=== PATIENT | male | born 1995 | race African-American/Black ===

== ENCOUNTER 2021-05-01 12:54 | Inpatient (IN) | payer OTHER ==
[~2021-05-01] VITALS: Ht 190.5 cm; Wt 117.8 kg
[2021-05-01] MEDS ORDERED: ZOLO50TA PO (13:01)
[2021-05-01 14:13] LABS: HEMATOCRIT 45.7 % (36.0-47.0); HEMOGLOBIN 15.5 g/dl (12.0-15.5); MEAN CORPUSCULAR HEMOGLOBIN 29.9 pg (27.0-33.0); MEAN CORPUSCULAR HGB CONC 33.9 g/dl (32.0-36.5); MEAN CORPUSCULAR VOLUME 88.1 fl (80.0-96.0); PLATELET COUNT, AUTOMATED 253 10^3/uL (150-450); RED BLOOD COUNT 5.19 10^6/uL (4.00-5.40); WHITE BLOOD COUNT 8.5 10^3/uL (4.0-10.0)
[2021-05-01 14:36] LABS: AMPHETAMINES LEVEL URINE NEGATIVE (NEGATIVE); BARBITURATES URINE NEGATIVE (NEGATIVE); BENZODIAZEPINES URINE NEGATIVE (NEGATIVE); CANNABINOIDS URINE POSITIVE (NEGATIVE); COCAINE METABOLITE URINE NEGATIVE (NEGATIVE); METHADONE URINE NEGATIVE (NEGATIVE); OPIATES URINE NEGATIVE (NEGATIVE); PHENCYCLIDINE URINE NEGATIVE (NEGATIVE)
[2021-05-01 14:49] LABS: RSV AMPLIFICATION NEGATIVE (NEGATIVE)
[2021-05-01 14:56] LABS: ACETAMINOPHEN LEVEL < 2.0 UG/ML (10.0-30.0); ALBUMIN 3.8 GM/DL (3.2-5.2); ALT/SGPT 25 U/L (12-78); BILIRUBIN,DIRECT 0.1 MG/DL (0.0-0.2); BILIRUBIN,TOTAL 0.6 MG/DL (0.2-1.0); BLOOD UREA NITROGEN 7 MG/DL (7-18); CALCIUM LEVEL 8.7 MG/DL (8.5-10.1); CARBON DIOXIDE LEVEL 28 MEQ/L (21-32); CHLORIDE LEVEL 107 MEQ/L (98-107); CREATININE FOR GFR 1.09 MG/DL (0.55-1.30); ETHYL ALCOHOL (ETHANOL) < 0.003 % (0.000-0.010); GLOMERULAR FILTRATION RATE > 60.0 (>60); GLUCOSE, FASTING 95 MG/DL (70-100); SALICYLATE LEVEL < 1.7 MG/DL (5.0-30.0); SODIUM LEVEL 139 MEQ/L (136-145); THYROID STIMULATING HORMONE 0.494 uIU/ML (0.358-3.740); TOTAL PROTEIN 7.6 GM/DL (6.4-8.2)
[2021-05-01 15:04] LABS: HCG, SERUM QUALITATIVE NEGATIVE (NEGATIVE)
[2021-05-01] MEDS ORDERED: HOME MED LIST COMPLETE! XX SCH (17:20)
[2021-05-02] MEDS ORDERED: MAALOX 30 ML SUSP *UDC PO PRN (15:20)
[2021-05-02] MEDS ORDERED: IBUPROFEN 400MG TAB PO PRN (15:20)
[2021-05-02] MEDS ORDERED: traZODone 50 MG TAB PO PRN (15:20)
[2021-05-02] MEDS ORDERED: MOM 30ML SUSPENSION UDC PO PRN (15:20)
[2021-05-02 17:00] VITALS: BP 135/89
[2021-05-03 06:27] VITALS: BP 121/82
[2021-05-03] MEDS: NICOTINE 21MG/24HR 1 EA TRANSDERMAL TD PRN (08:52)
[2021-05-03] MEDS ORDERED: FLUBLOK(EGG FREE)(QUAD)INFLUENZA VACC 0.5ML SYRINGE 18YRS & OLDER IM ONE (11:55)
[2021-05-03] MEDS ORDERED: NICOTINE POLACRILEX 2 MG GUM PO PRN (12:30)
[2021-05-03] MEDS ORDERED: INFLUENZA QUADRIVALENT PF VACCINE 0.5ML SYRINGE IM ONE (13:00)
[2021-05-03 13:52] LABS: HEPATITIS B CORE ANTIBODY IGM NEGATIVE (NEGATIVE); HEPATITIS B SURFACE ANTIGEN NEGATIVE (NEGATIVE); HEPATITIS C VIRUS ABY INDEX 0.2 INDEX (<0.8)
[2021-05-03 16:25] VITALS: BP 137/77
[2021-05-04 06:15] VITALS: BP 131/67
[2021-05-04] MEDS ORDERED: SERTRALINE HCL 50 MG TAB PO SCH (09:00)
[2021-05-04 11:05] LABS: CHOLESTEROL RISK RATIO 5.054 (<5)
[2021-05-04 11:12] LABS: HEMOGLOBIN A1c 5.3 %
[2021-05-04 16:58] VITALS: BP 129/66
[2021-05-04] MEDS: traZODone 100 MG TAB PO PRN (22:46)
[2021-05-05 06:51] VITALS: BP 144/63
[2021-05-05] MEDS: SERTRALINE HCL 25 MG TABLET PO SCH (08:36)
[2021-05-05] MEDS: NICOTINE 21MG/24HR 1 EA TRANSDERMAL TD PRN (16:08)
[2021-05-05 19:05] VITALS: BP 138/82
[2021-05-05] MEDS: traZODone 100 MG TAB PO PRN (23:07)
[2021-05-06 07:03] VITALS: BP 123/68
[2021-05-06] MEDS: SERTRALINE HCL 25 MG TABLET PO SCH (09:12)
[2021-05-06 16:38] VITALS: BP 131/78
[2021-05-06] MEDS: PRAZOSIN 1 MG CAP PO SCH (21:43)
[2021-05-06] MEDS: traZODone 100 MG TAB PO PRN (22:43)
[2021-05-07 06:34] VITALS: BP 143/64
[2021-05-07] MEDS: SERTRALINE HCL 25 MG TABLET PO SCH (08:20)
[2021-05-07] MEDS: NICOTINE 21MG/24HR 1 EA TRANSDERMAL TD PRN (08:21)
[2021-05-07 16:20] VITALS: BP_SYST 122; BP_SYST 140; BP_DIAS 77; BP_DIAS 83
[2021-05-07] MEDS: PRAZOSIN 1 MG CAP PO SCH (20:33)
[2021-05-07] MEDS: traZODone 100 MG TAB PO PRN (23:00)
[2021-05-08 06:41] VITALS: BP 135/70
[2021-05-08] MEDS: SERTRALINE HCL 25 MG TABLET PO SCH (08:13)
[2021-05-08 18:13] VITALS: BP 135/81
[2021-05-08 20:14] VITALS: BP 138/80
[2021-05-08] MEDS: PRAZOSIN 1 MG CAP PO SCH (20:14)
[2021-05-08] MEDS: traZODone 100 MG TAB PO PRN (22:38)
[2021-05-09 07:00] VITALS: BP 114/69
[2021-05-09] MEDS: SERTRALINE HCL 25 MG TABLET PO SCH (09:41)
[2021-05-09] MEDS: NICOTINE 21MG/24HR 1 EA TRANSDERMAL TD PRN (09:41)
[2021-05-09] MEDS ORDERED: MINI1CAP PO (11:40)
[2021-05-09] MEDS ORDERED: SERT25TA21 PO (11:40)
[2021-05-09] MEDS ORDERED: NICO21PAT TD (11:40)
[2021-05-09] MEDS ORDERED: TRAZ-257 PO (11:40)
== END 2021-05-09 13:15 | disposition home or self-care (01) | DRG 751 ==
LOC: M ED 12:54 → EDSEX 12:54 → M ED INP 05-02 15:18 → M PSY 05-02 16:35
PROVIDERS: ADMIT Student in an Organized Health Care Education/Training Program; ATTEND Student in an Organized Health Care Education/Training Program
DX: F33.1 Major depressive disorder, recurrent, moderate (principal); R45.850 Homicidal ideations; R45.851 Suicidal ideations; F10.10 Alcohol abuse, uncomplicated; F17.200 Nicotine dependence, unspecified, uncomplicated; F12.959 Cannabis use, unspecified with psychotic disorder, unspecified; Z63.8 Other specified problems related to primary support group; E66.9 Obesity, unspecified; M22.41 Chondromalacia patellae, right knee; F60.4 Histrionic personality disorder

== ENCOUNTER → 2021-08-04 | Outpatient (CLI) | payer OTHER ==
[~2021-08-04] MED LIST: MINI1CAP PO; NICO21PAT TD; SERT25TA21 PO; TRAZ-257 PO; ZOLO50TA PO
== END ==
LOC: M LAB 16:43
PROVIDERS: ATTEND Physician Assistant
DX: J03.90 Acute tonsillitis, unspecified (principal)

== ENCOUNTER 2022-05-12 01:42 | Emergency (ER) | payer OTHER ==
[~2022-05-12] VITALS: Ht 180.3 cm; Wt 82.0 kg
[2022-05-12] MEDS ORDERED: NS 1,000 ML IV ONE (01:50)
[2022-05-12 02:05] LABS: BASO % 0.3 % (0.0-1.0); EOS # 0.1 10^3/uL (0.0-0.5); EOS % 1.4 % (0.0-3.0); HEMATOCRIT 39.6 % (42.0-52.0); HEMOGLOBIN 13.6 g/dl (13.5-17.5); LYMPH # 3.8 10^3/uL (1.5-5.0); LYMPH % 39.7 % (24.0-44.0); MEAN CORPUSCULAR HGB CONC 34.3 g/dl (32.0-36.5); MEAN CORPUSCULAR VOLUME 90.2 fl (80.0-96.0); MONO # 0.9 10^3/uL (0.0-0.8); MONO % 9.6 % (2.0-8.0); NEUTROPHILS # 4.6 10^3/uL (1.5-8.5); NEUTROPHILS % 48.8 % (36.0-66.0); PLATELET COUNT, AUTOMATED 274 10^3/uL (150-450); RED BLOOD COUNT 4.39 10^6/uL (4.30-6.10); WHITE BLOOD COUNT 9.5 10^3/uL (4.0-10.0)
[2022-05-12 02:26] LABS: BLOOD UREA NITROGEN 16 MG/DL (9-23); CALCIUM LEVEL 8.7 MG/DL (8.5-10.1); CARBON DIOXIDE LEVEL 26 MMOL/L (20-31); CHLORIDE LEVEL 104 MMOL/L (98-107); CREATININE FOR GFR 1.01 MG/DL (0.70-1.30); GLOMERULAR FILTRATION RATE > 60.0 (>60); GLUCOSE, FASTING 142 MG/DL (60-100); MAGNESIUM LEVEL 1.9 MG/DL (1.8-2.4); POTASSIUM SERUM 3.6 MMOL/L (3.5-5.1); SODIUM LEVEL 139 MMOL/L (136-145)
[2022-05-12 03:00] VITALS: BP 138/63
== END 2022-05-12 04:23 | disposition short-term general hospital (02) ==
LOC: M ED 01:42 → EDBD 01:42 → M ED 04:23
DX: T50.905A Adverse effect of unspecified drugs, medicaments and biological substances, initial encounter (principal); R00.2 Palpitations; R00.0 Tachycardia, unspecified; F32.A Depression, unspecified; F43.10 Post-traumatic stress disorder, unspecified; F12.10 Cannabis abuse, uncomplicated; Z79.899 Other long term (current) drug therapy

== ENCOUNTER → 2024-04-11 | Outpatient (CLI) | payer OTHER ==
[2024-04-11 17:29] LABS: BASO # 0.1 10^3/uL (0.0-0.2); BASO % 0.7 % (0.0-1.0); EOS # 0.2 10^3/uL (0.0-0.5); EOS % 2.3 % (0.0-3.0); HEMATOCRIT 46.3 % (42.0-52.0); HEMOGLOBIN 16.1 g/dl (13.5-17.5); LYMPH # 2.1 10^3/uL (1.5-5.0); LYMPH % 29.9 % (24.0-44.0); MEAN CORPUSCULAR HEMOGLOBIN 30.8 pg (27.0-33.0); MEAN CORPUSCULAR HGB CONC 34.8 g/dl (32.0-36.5); MEAN CORPUSCULAR VOLUME 88.7 fl (80.0-96.0); MONO # 0.8 10^3/uL (0.0-0.8); MONO % 11.1 % (2.0-8.0); NEUTROPHILS # 3.9 10^3/uL (1.5-8.5); NEUTROPHILS % 55.4 % (36.0-66.0); PLATELET COUNT, AUTOMATED 282 10^3/uL (150-450); RED BLOOD COUNT 5.22 10^6/uL (4.30-6.10); WHITE BLOOD COUNT 7.1 10^3/uL (4.0-10.0)
[2024-04-11 17:57] LABS: THYROID STIMULATING HORMONE 0.921 uIU/ML (0.55-4.78)
[2024-04-11 17:58] LABS: FREE T4 1.27 NG/DL (0.89-1.76)
[2024-04-11 17:59] LABS: ALBUMIN 4.2 G/DL (3.2-5.2); ALKALINE PHOSPHATASE 77 U/L (40-129); ALT/SGPT 27 U/L (7.0-40); AST/SGOT 26 U/L (<34); BILIRUBIN,TOTAL 0.7 MG/DL (0.3-1.2); BLOOD UREA NITROGEN 15 MG/DL (9-23); CALCIUM LEVEL 9.8 MG/DL (8.5-10.1); CARBON DIOXIDE LEVEL 25 MMOL/L (20-31); CHLORIDE LEVEL 103 MMOL/L (98-107); CHOLESTEROL LEVEL 214 MG/DL (<200); CHOLESTEROL RISK RATIO 4.43 (<5); CREATININE FOR GFR 0.93 MG/DL (0.70-1.30); GLOMERULAR FILTRATION RATE > 60.0 (>60); GLUCOSE, FASTING 69 MG/DL (60-100); HDL CHOLESTEROL 48.3 MG/DL (>40); LDL CHOLESTEROL 116.1 MG/DL (<100); NON-HDL-C 165.7 MG/DL; POTASSIUM SERUM 4.1 MMOL/L (3.5-5.1); SODIUM LEVEL 138 MMOL/L (136-145); TOTAL PROTEIN 8.2 G/DL (5.7-8.2); TRIGLYCERIDES LEVEL 248 MG/DL (<150)
== END ==
LOC: M PLALAB 15:52
PROVIDERS: ATTEND Nurse Practitioner Family
DX: R53.83 Other fatigue (principal); M25.561 Pain in right knee; R73.01 Impaired fasting glucose; E78.2 Mixed hyperlipidemia; E55.9 Vitamin D deficiency, unspecified; M25.562 Pain in left knee

== ENCOUNTER → 2024-05-19 | Outpatient (RCR) | payer OTHER | LOC: M PT 05-12 11:34 | PROVIDERS: ATTEND Nurse Practitioner Family | DX: M25.562 Pain in left knee (principal); M25.561 Pain in right knee ==